=== PATIENT | female | born 1960 | race American Indian/Alaskan Native ===

== ENCOUNTER 2017-11-26 20:24 | Emergency (ER) | payer BC ==
[2017-11-27] MEDS ORDERED: hyperHEP B S/D IM ONE (04:47)
--- NOTE | 2017-11-27 05:01 | Emergency Department Report ---
ED General Adult HPI - General Chief complaint: Medical Clearance Stated complaint: HEP B EXPOSURE Time Seen by Provider: 11/27/17 04:47 Source: patient Mode of arrival: Ambulatory Limitations: No Limitations - History of Present Illness Initial comments: This is a 57 y.o. female presents with recent exposure to Hep B during intercourse last night. She went to PCP who sent her to a clinic in [facility] and no one had HBIG immunization. Patient states she called [facility] to see if she could get Hep B instead and they confirmed she will need HBIG to minimize risk. -: Last night Radiation: non-radiation Severity scale (0 -10): 0 Improves with: none Worsens with: none Associated Symptoms: denies other symptoms Treatments Prior to Arrival: none - Related Data Allergies Allergy/AdvReac Type Severity Reaction Status Date / Time Latex, Natural Rubber Allergy Itching Verified 11/26/17 21:07 Quinolones Allergy Rash Verified 11/26/17 21:07 ED Review of Systems ROS: Stated complaint: HEP B EXPOSURE Other details as noted in HPI Constitutional: denies: chills, fever Respiratory: denies: cough, shortness of breath, wheezing Cardiovascular: denies: chest pain, palpitations Gastrointestinal: denies: abdominal pain, nausea, diarrhea Neurological: denies: headache, weakness, paresthesias Psychiatric: denies: anxiety, depression ED Past Medical Hx - Past Medical History Hx Hypertension: Yes Hx Diabetes: Yes - Surgical History Hx Breast Surgery: Yes (lumpectomy-1995, breast reduction 2015) Additional Surgical History: hysterectomy-2001 - Social History Smoking Status: Never Smoker Substance Use Type: None ED Physical Exam - General Limitations: No Limitations General appearance: alert, in no apparent distress - Respiratory Respiratory exam: Present: normal lung sounds bilaterally. Absent: respiratory distress - Cardiovascular Cardiovascular Exam: Present: regular rate, normal rhythm. Absent: systolic murmur, diastolic murmur, rubs, gallop - GI/Abdominal GI/Abdominal exam: Present: soft, normal bowel sounds - Neurological Exam Neurological exam: Present: alert, oriented X3 - Psychiatric Psychiatric exam: Present: normal affect, normal mood - Skin Skin exam: Present: warm, dry, intact, normal color. Absent: rash ED Course Vital Signs 11/26/17 20:59 Temperature 97.7 F Pulse Rate 81 Respiratory 16 Rate Blood Pressure 144/79 O2 Sat by Pulse 98 Oximetry ED Medical Decision Making - Medical Decision Making 57 y.o. female presents for HBIG immunization, post exposure to Hep B via intercourse last night. HBIG vaccine administered. F/U with PCP. Critical care attestation.: If time is entered above; I have spent that time in minutes in the direct care of this critically ill patient, excluding procedure time. ED Disposition Clinical Impression: Need for post exposure prophylaxis for hepatitis B, Exposure to hepatitis B Disposition: TO HOME OR SELFCARE Is pt being admited?: No Does the pt Need Aspirin: No Condition: Stable Instructions: Hepatitis B Immune Globulin (Injection), Postexposure Prophylaxis (ED) Additional Instructions: Follow up with Primary Care Provider. Referrals: ZEN ABRAMS MD [Primary Care Provider] - 3-5 Days [facility] [Outside] - 3-5 Days [facility] [Outside] - 3-5 Days [facility] [Outside] - 3-5 Days Forms: Work/School Release Form(ED) Time of Disposition: 05:58 Print Language: GABONESE
[2017-11-27 06:32] VITALS: BP 166/107
== END 2017-11-27 06:30 | disposition home or self-care (01) ==
LOC: ED 20:24
DX: Z20.5 Contact with and (suspected) exposure to viral hepatitis (principal); I10 Essential (primary) hypertension; E11.9 Type 2 diabetes mellitus without complications; Z88.8 Allergy status to other drugs, medicaments and biological substances; Z91.040 Latex allergy status
CPT/HCPCS: 90371; 99282